=== PATIENT | male | born 1960 | race African-American/Black ===

== ENCOUNTER 2024-11-30 20:57 | Inpatient (IN) | payer BC, MEDICAID, MEDICARE ==
[~2024-11-30] VITALS: Ht 177.8 cm; Wt 95.3 kg
[2024-11-30 20:59] VITALS: O2SAT 97
[2024-11-30] MEDS: ACETAMINOPHEN 325MG TABLET PO ONE (22:05)
[2024-11-30 23:55] LABS: BASOPHILS % 0.4 % (0.0-2.0); EOSINOPHILS % 0.3 % (0.0-5.0); HEMATOCRIT. 40.5 % (42.0-52.0); HEMOGLOBIN. 13.5 g/dL (14.0-18.0); LYMPHOCYTES % 9.1 % (20.0-50.0); MEAN PLATELET VOLUME 8.1 fl (7.4-10.4); MONOCYTES % 6.1 % (2.0-8.0); NEUTROPHILS % 84.1 % (40.0-76.0); PLATELET 232 x1000/uL (130-400); RED BLOOD CELL COUNT 3.94 mill/uL (4.7-6.1); RED CELL DISTRIBUTION WIDTH 13.6 % (11.6-14.6)
[2024-12-01] VITALS: BP 137/90; PULSE 71; RESP 18; TEMP 36.6; O2SAT 99
[2024-12-01 00:05] LABS: CREATININE 0.9 mg/dL (0.6-1.3)
[2024-12-01 00:06] LABS: UREA NITROGEN BLOOD 7 mg/dL (9-23)
[2024-12-01 00:22] LABS: INR 1.0
[2024-12-01] MEDS ORDERED: GUAIFENESIN 200MG/10ML SUGAR FREE UDC PO PRN (01:15)
[2024-12-01] MEDS ORDERED: ONDANSETRON HCL 4MG/2ML INJ IV PRN ×2 (01:15→20:00)
[2024-12-01] MEDS ORDERED: CLONIDINE 0.1MG TABLET PO PRN (01:15)
[2024-12-01] MEDS ORDERED: DOCUSATE SODIUM 100MG CAPSULE PO PRN (01:15)
[2024-12-01] MEDS ORDERED: MAGNESIUM/ALUMINUM HYDROXIDE/SIMETHICONE 30ML UDC PO PRN (01:15)
[2024-12-01] MEDS ORDERED: IPRATROPIUM/ALBUTEROL 0.5-3(2.5)MG/3ML NEB HHN PRN (01:15)
[2024-12-01] MEDS: KETOROLAC 15MG/ML VIAL IV PRN (02:04)
[2024-12-01] MEDS ORDERED: NALOXONE HCL 0.4MG/ML VIAL IV PRN (02:15)
[2024-12-01 03:08] VITALS: BP 137/90; PULSE 71; RESP 18; TEMP 36.6404
[2024-12-01 04:00] VITALS: BP 111/81; PULSE 74; RESP 18; TEMP 36.7; O2SAT 99
[2024-12-01] MEDS: LACTATED RINGERS 1,000 ML IV SCH (05:37)
[2024-12-01] MEDS: MORPHINE SULFATE 4 MG/ML INJ (FOR IV/IM USE) IV PRN (06:10)
[2024-12-01 08:00] VITALS: BP 147/76; PULSE 64; RESP 18; TEMP 36.4; O2SAT 99
[2024-12-01] MEDS: ASPIRIN 81MG EC TABLET PO SCH (09:00)
[2024-12-01] MEDS: PANTOPRAZOLE SODIUM 40 MG/VIAL IV SCH (09:36)
[2024-12-01 10:11] LABS: CLARITY URINE CLEAR (CLEAR); COLOR URINE YELLOW (YELLOW); GLUCOSE URINE NEGATIVE (NEGATIVE); KETONES URINE TRACE (NEGATIVE); LEUKOCYTE ESTERASE URINE NEGATIVE (NEGATIVE); NITRITE URINE NEGATIVE (NEGATIVE); OCCULT BLOOD URINE TRACE (NEGATIVE); PH URINE 7.0 (4.5-8.0); PROTEIN URINE NEGATIVE (NEGATIVE); SPECIFIC GRAVITY URINE 1.016 (1.005-1.030); UROBILINOGEN URINE 1.0 E.U./dL (0.2-1.0)
[2024-12-01 10:25] LABS: BACTERIA URINE 1+; SQUAMOUS EPITHELIAL CELL URINE FEW /lpf (RARE/1+); YEAST URINE NONE SEEN
[2024-12-01 10:26] LABS: RBC URINE 0-2 /hpf (0-2)
[2024-12-01 10:30] LABS: *AMPHETAMINES SCREEN URINE NEGATIVE (NEGATIVE); *BARBITURATES SCREEN URINE NEGATIVE (NEGATIVE); *BENZODIAZEPINES SCREEN URINE NEGATIVE (NEGATIVE); *COCAINE SCREEN URINE NEGATIVE (NEGATIVE); CANNABINOID URINE SCREEN NEGATIVE (NEGATIVE); ECSTASY MDMA SCREEN URINE NEGATIVE (NEGATIVE); METHADONE URINE SCREEN NEGATIVE (NEGATIVE); OPIATES URINE SCREEN PRESUMPTIVE POSITIVE (NEGATIVE); PHENCYCLIDINE URINE SCREEN NEGATIVE (NEGATIVE)
[2024-12-01 12:00] VITALS: BP 140/76; PULSE 72; RESP 18; TEMP 36.5; O2SAT 99
[2024-12-01 12:11] LABS: FOLIC ACID (FOLATE) SERUM 12.89 ng/mL (>5.38); VITAMIN B12 SERUM 214 pg/mL (211-911)
[2024-12-01] MEDS: HYDROCODONE/ACETAMINOPHEN 5/325MG TABLET PO PRN (15:25)
[2024-12-01 16:00] VITALS: BP 136/83; PULSE 76; RESP 18; TEMP 36.6; O2SAT 98
[2024-12-01] MEDS: DEXT 5%/0.9% NACL 1,000 ML IV SCH (17:55)
[2024-12-01 18:38] LABS: CREATINE KINASE MB FRACTION 1.8 ng/mL (0.5-3.6)
[2024-12-01 18:39] LABS: LDL CHOLESTEROL 95 mg/dL (5-100); TRIGLYCERIDE 59 mg/dL (0-150); TROPONIN I HIGH SENSITIVITY < 4 ng/L (3.0-53)
[2024-12-01 18:43] LABS: T4 FREE 1.22 ng/dL (0.89-1.76)
[2024-12-01] MEDS ORDERED: VANCOMYCIN HCL 1GM VIAL ONE (18:52)
[2024-12-01] MEDS ORDERED: LIDOCAINE HCL/EPINEPHRINE 1%-EPI 1:100,000 20ML VIAL ONE (18:52)
[2024-12-01] MEDS ORDERED: ONDANSETRON HCL 4MG/2ML INJ ONE ×2 (18:59→19:47)
[2024-12-01] MEDS ORDERED: FENTANYL CITRATE/PF 50MCG/ML 2ML VIAL ONE ×2 (18:59→19:24)
[2024-12-01] MEDS ORDERED: DEXAMETHASONE 4MG/ML 1ML VIAL ONE (18:59)
[2024-12-01] MEDS ORDERED: ETOMIDATE 2MG/ML 10ML VIAL IV ONE (18:59)
[2024-12-01] MEDS ORDERED: MIDAZOLAM HCL 2 MG/2 ML VIAL ONE (18:59)
[2024-12-01] MEDS ORDERED: LIDOCAINE HCL 1% 10 MG/ML 10ML VIAL ONE (19:00)
[2024-12-01 19:15] LABS: HEPATITIS C AB NON REACTIVE (Neg) (Negative)
[2024-12-01] MEDS ORDERED: CEFAZOLIN SODIUM 2000MG/VIAL IJ SCH (22:00)
[2024-12-01] MEDS ORDERED: CEFAZOLIN 1000MG PREMIX 50ML IV SCH (22:00)
[2024-12-02] VITALS: BP 147/81; PULSE 76; RESP 19; TEMP 36.6; O2SAT 99
[2024-12-02] MEDS: HYDROMORPHONE HCL/PF 1MG/ML INJ IV PRN (00:36)
[2024-12-02] MEDS: MORPHINE SULFATE 10 MG/ML INJ (NOT FOR IM USE) IV PRN (00:47)
[2024-12-02 04:00] VITALS: BP 135/77; PULSE 70; RESP 17; TEMP 36.6; O2SAT 100
[2024-12-02 07:26] LABS: CREATINE KINASE MB FRACTION 1.1 ng/mL (0.5-3.6)
[2024-12-02 07:27] LABS: TROPONIN I HIGH SENSITIVITY < 4 ng/L (3.0-53)
[2024-12-02 07:30] LABS: CREATININE 1.0 mg/dL (0.6-1.3); TRIGLYCERIDE 71 mg/dL (0-150); UREA NITROGEN BLOOD 7 mg/dL (9-23)
[2024-12-02 07:31] LABS: LDL CHOLESTEROL 81 mg/dL (5-100)
[2024-12-02 07:32] LABS: PHOSPHORUS 3.0 mg/dL (2.5-4.9)
[2024-12-02 07:35] LABS: BASOPHILS % 0.5 % (0.0-2.0); EOSINOPHILS % 0.3 % (0.0-5.0); HEMATOCRIT. 36.2 % (42.0-52.0); HEMOGLOBIN. 12.1 g/dL (14.0-18.0); LYMPHOCYTES % 13.0 % (20.0-50.0); MEAN PLATELET VOLUME 8.8 fl (7.4-10.4); MONOCYTES % 11.1 % (2.0-8.0); NEUTROPHILS % 75.1 % (40.0-76.0); PLATELET 192 x1000/uL (130-400); RED BLOOD CELL COUNT 3.51 mill/uL (4.7-6.1); RED CELL DISTRIBUTION WIDTH 13.8 % (11.6-14.6)
[2024-12-02 08:00] VITALS: BP 146/83; PULSE 72; RESP 18; TEMP 37; O2SAT 99
[2024-12-02 12:00] VITALS: BP 138/80; PULSE 71; RESP 20; TEMP 36.6; O2SAT 99
[2024-12-02 16:00] VITALS: BP 136/74; PULSE 74; RESP 18; TEMP 37.2; O2SAT 100
[2024-12-02 20:00] VITALS: BP 122/83; PULSE 83; RESP 18; TEMP 36.8; O2SAT 97
[2024-12-02] MEDS: ENOXAPARIN 100MG/ML SYR SUBCUT SCH (23:57)
[2024-12-03] VITALS: BP 117/66; PULSE 74; RESP 20; TEMP 36.6; O2SAT 97
[2024-12-03 04:00] VITALS: BP 136/71; PULSE 78; RESP 18; TEMP 36.9; O2SAT 97
[2024-12-03 08:16] VITALS: BP 120/72; PULSE 66; RESP 19; TEMP 35.9; O2SAT 97
[2024-12-03 08:43] LABS: BASOPHILS % 0.6 % (0.0-2.0); EOSINOPHILS % 1.2 % (0.0-5.0); HEMATOCRIT. 30.4 % (42.0-52.0); HEMOGLOBIN. 10.2 g/dL (14.0-18.0); LYMPHOCYTES % 16.3 % (20.0-50.0); MEAN PLATELET VOLUME 8.6 fl (7.4-10.4); MONOCYTES % 10.8 % (2.0-8.0); NEUTROPHILS % 71.1 % (40.0-76.0); PLATELET 196 x1000/uL (130-400); RED BLOOD CELL COUNT 2.95 mill/uL (4.7-6.1); RED CELL DISTRIBUTION WIDTH 13.3 % (11.6-14.6)
[2024-12-03 08:48] LABS: INR 1.0
[2024-12-03 08:54] LABS: CREATININE 0.8 mg/dL (0.6-1.3); UREA NITROGEN BLOOD 6 mg/dL (9-23)
[2024-12-03 08:57] LABS: PHOSPHORUS 2.4 mg/dL (2.5-4.9)
[2024-12-03] MEDS: FAMOTIDINE 20MG/2ML VIAL IV SCH (09:05)
[2024-12-03 11:56] VITALS: BP 130/85; PULSE 72; RESP 19; TEMP 36.7; O2SAT 98
[2024-12-03] MEDS ORDERED: LIDOCAINE HCL 1% 10 MG/ML 10ML VIAL ONE ×2 (12:32→13:05)
[2024-12-03 16:00] VITALS: BP 133/69; PULSE 75; RESP 18; TEMP 37.1; O2SAT 98
[2024-12-03 20:00] VITALS: BP 141/78; PULSE 72; RESP 20; TEMP 36.9; O2SAT 95
[2024-12-04] VITALS: BP 118/59; PULSE 61; RESP 18; TEMP 36.9; O2SAT 96
[2024-12-04 04:00] VITALS: BP 120/66; PULSE 62; RESP 18; TEMP 36.7; O2SAT 97
[2024-12-04 08:00] VITALS: BP 130/68; PULSE 64; RESP 17; TEMP 36.6; O2SAT 97
[2024-12-04 08:35] LABS: BASOPHILS % 0.5 % (0.0-2.0); EOSINOPHILS % 2.2 % (0.0-5.0); HEMATOCRIT. 29.9 % (42.0-52.0); HEMOGLOBIN. 10.0 g/dL (14.0-18.0); LYMPHOCYTES % 15.5 % (20.0-50.0); MEAN PLATELET VOLUME 8.3 fl (7.4-10.4); MONOCYTES % 13.1 % (2.0-8.0); NEUTROPHILS % 68.7 % (40.0-76.0); PLATELET 205 x1000/uL (130-400); RED BLOOD CELL COUNT 2.92 mill/uL (4.7-6.1); RED CELL DISTRIBUTION WIDTH 13.1 % (11.6-14.6)
[2024-12-04 08:46] LABS: CREATININE 0.8 mg/dL (0.6-1.3); UREA NITROGEN BLOOD 7 mg/dL (9-23)
[2024-12-04 08:48] LABS: ASPARTATE AMINOTRANSFERASE 24 IU/L (<34); BILIRUBIN TOTAL 0.7 mg/dL (0.1-1.0); PROTEIN TOTAL 6.1 g/dL (6.0-8.3)
[2024-12-04] MEDS ORDERED: POLYMYXIN B SULFATE 500000 UNITS/VIAL ONE (09:24)
[2024-12-04] MEDS ORDERED: LIDOCAINE HCL/EPINEPHRINE 1%-EPI 1:100,000 20ML VIAL ONE ×2 (09:25→15:33)
[2024-12-04] MEDS ORDERED: VANCOMYCIN HCL 1GM VIAL ONE ×2 (09:25→15:10)
[2024-12-04] MEDS ORDERED: KETOROLAC 30MG/ML VIAL ONE (10:24)
[2024-12-04] MEDS ORDERED: LIDOCAINE HCL 1% 10 MG/ML 10ML VIAL ONE (10:24)
[2024-12-04] MEDS ORDERED: DEXAMETHASONE 4MG/ML 1ML VIAL ONE (10:24)
[2024-12-04] MEDS ORDERED: ONDANSETRON HCL 4MG/2ML INJ ONE (10:24)
[2024-12-04] MEDS ORDERED: PHENYLEPHRINE HCL 10MG/ML 1ML IV ONE (10:25)
[2024-12-04] MEDS ORDERED: PROPOFOL 200MG/20ML VIAL IV ONE (10:25)
[2024-12-04] MEDS ORDERED: FAMOTIDINE 20MG/2ML VIAL IV ONE (10:34)
[2024-12-04] MEDS ORDERED: ACETAMINOPHEN 1000MG/100ML 100 ML IV ONE (10:34)
[2024-12-04 12:00] VITALS: BP 148/79; PULSE 89; RESP 18; TEMP 36.7; O2SAT 96
[2024-12-04] MEDS ORDERED: ONDANSETRON HCL 4MG/2ML INJ IV PRN (12:15)
[2024-12-04] MEDS ORDERED: LABETALOL 5MG/ML 4ML INJ IV PRN (12:15)
[2024-12-04] MEDS ORDERED: HYDROMORPHONE HCL/PF 1MG/ML INJ IV PRN (12:15)
[2024-12-04] MEDS ORDERED: HYDRALAZINE 20MG/ML VIAL IV PRN ×2 (12:15)
[2024-12-04] MEDS ORDERED: MIDAZOLAM HCL 2 MG/2 ML VIAL ONE (12:44)
[2024-12-04] MEDS ORDERED: ROCURONIUM BROMIDE 10MG/ML VIAL 5ML IV ONE (12:44)
[2024-12-04] MEDS ORDERED: FENTANYL CITRATE/PF 50MCG/ML 2ML VIAL ONE (12:44)
[2024-12-04] MEDS ORDERED: CEFAZOLIN SODIUM 1000MG/VIAL ONE (13:29)
[2024-12-04] MEDS ORDERED: HYDROMORPHONE HCL/PF 1MG/ML INJ ONE ×3 (13:35→16:08)
[2024-12-04] MEDS ORDERED: CEFAZOLIN SODIUM 2000MG/VIAL IJ SCH (14:00)
[2024-12-04] MEDS ORDERED: NEOSTIGMINE METHYLSULFATE 1MG/ML 10 ML VIAL ONE (14:50)
[2024-12-04] MEDS ORDERED: GLYCOPYRROLATE 0.2 MG/ML 2ML VIAL ONE ×2 (14:50)
[2024-12-04 20:00] VITALS: BP 124/89; PULSE 82; RESP 20; TEMP 36.4; O2SAT 98
[2024-12-04] MEDS: ENOXAPARIN 30MG/0.3ML SYR SUBCUT SCH (21:30)
[2024-12-05] VITALS: BP 115/68; PULSE 73; RESP 20; TEMP 36.8; O2SAT 98
[2024-12-05 04:00] VITALS: BP 127/76; PULSE 93; RESP 20; TEMP 36.5; O2SAT 99
[2024-12-05 08:00] VITALS: BP 146/74; PULSE 72; RESP 20; TEMP 36.5; O2SAT 100
[2024-12-05 12:00] VITALS: BP 184/82; PULSE 75; RESP 20; TEMP 36.6; O2SAT 100
[2024-12-05 12:52] LABS: BASOPHILS % 0.4 % (0.0-2.0); EOSINOPHILS % 0.4 % (0.0-5.0); HEMATOCRIT. 29.2 % (42.0-52.0); HEMOGLOBIN. 9.7 g/dL (14.0-18.0); LYMPHOCYTES % 12.0 % (20.0-50.0); MONOCYTES % 14.3 % (2.0-8.0); NEUTROPHILS % 72.9 % (40.0-76.0); RED BLOOD CELL COUNT 2.82 mill/uL (4.7-6.1); RED CELL DISTRIBUTION WIDTH 12.6 % (11.6-14.6)
[2024-12-05 13:13] LABS: CREATININE 0.8 mg/dL (0.6-1.3); UREA NITROGEN BLOOD 6 mg/dL (9-23)
[2024-12-05 13:59] LABS: PLATELET 251 x1000/uL (130-400)
[2024-12-05 16:00] VITALS: BP 162/85; PULSE 83; RESP 20; TEMP 36.1; O2SAT 100
[2024-12-05 20:00] VITALS: BP 158/70; PULSE 88; RESP 16; TEMP 38.5; O2SAT 97
[2024-12-05] MEDS: ACETAMINOPHEN 325MG TABLET PO PRN (21:10)
[2024-12-05] MEDS ORDERED: KETOROLAC 15MG/ML VIAL IV PRN (23:00)
[2024-12-06] VITALS: BP 109/57; PULSE 71; RESP 19; TEMP 36.6; O2SAT 97
[2024-12-06 04:00] VITALS: BP 131/73; PULSE 72; RESP 16; TEMP 36.9; O2SAT 96
[2024-12-06 07:20] LABS: HEMATOCRIT. 27.2 % (42.0-52.0); HEMOGLOBIN. 9.2 g/dL (14.0-18.0); MEAN PLATELET VOLUME 8.0 fl (7.4-10.4); PLATELET 266 x1000/uL (130-400); RED BLOOD CELL COUNT 2.67 mill/uL (4.7-6.1); RED CELL DISTRIBUTION WIDTH 12.9 % (11.6-14.6)
[2024-12-06 07:34] LABS: CREATININE 0.8 mg/dL (0.6-1.3); UREA NITROGEN BLOOD 7 mg/dL (9-23)
[2024-12-06 08:00] VITALS: BP 121/63; RESP 19; TEMP 36.4; O2SAT 99
[2024-12-06] MEDS: TAMSULOSIN HCL 0.4MG SR CAPSULE PO SCH (10:05)
[2024-12-06 12:00] VITALS: BP 128/65; PULSE 75; RESP 20; TEMP 36.8; O2SAT 100
[2024-12-06 16:00] VITALS: BP 123/69; PULSE 72; RESP 18; TEMP 36.6; O2SAT 99
[2024-12-06 16:11] LABS: CLARITY URINE CLEAR (CLEAR); COLOR URINE DARK YELLOW (YELLOW); GLUCOSE URINE NEGATIVE (NEGATIVE); KETONES URINE NEGATIVE (NEGATIVE); LEUKOCYTE ESTERASE URINE NEGATIVE (NEGATIVE); NITRITE URINE NEGATIVE (NEGATIVE); OCCULT BLOOD URINE NEGATIVE (NEGATIVE); PH URINE 7.0 (4.5-8.0); PROTEIN URINE TRACE (NEGATIVE); SPECIFIC GRAVITY URINE 1.014 (1.005-1.030); UROBILINOGEN URINE 1.0 E.U./dL (0.2-1.0)
[2024-12-06 16:22] LABS: EOSINOPHILS % MANUAL 1.0 % (0.0-5.0); LYMPHOCYTES % MANUAL 14.0 % (20.0-50.0); METAMYELOCYTES % 2.0 % (0-0); MONOCYTES % MANUAL 15.0 % (2.0-8.0); MYELOCYTES % 2.0 % (0-0); NEUTROPHILS % MANUAL 66.0 % (45.0-75.0)
[2024-12-06 16:23] LABS: PLATELET ESTIMATE NORMAL
[2024-12-06 17:08] LABS: BACTERIA URINE 1+; RBC URINE NONE SEEN /hpf (0-2); SQUAMOUS EPITHELIAL CELL URINE RARE /lpf (RARE/1+); WBC URINE 0-2 /hpf (0-2)
[2024-12-06 20:00] VITALS: BP 121/55; PULSE 83; RESP 16; TEMP 36.3; O2SAT 96
[2024-12-07] VITALS: BP 120/59; PULSE 80; RESP 18; TEMP 37.2; O2SAT 98
[2024-12-07] MEDS: HYDROCODONE/ACETAMINOPHEN 5/325MG TABLET PO PRN (03:46)
[2024-12-07 04:00] VITALS: BP 115/55; PULSE 62; RESP 16; TEMP 38.1; O2SAT 99
[2024-12-07 08:00] VITALS: BP 115/70; PULSE 80; RESP 18; TEMP 37.8; O2SAT 98
[2024-12-07 12:00] VITALS: BP 110/51; PULSE 78; RESP 19; TEMP 37.8; O2SAT 98
[2024-12-07 16:00] VITALS: BP 119/62; PULSE 81; RESP 18; TEMP 37.7; O2SAT 99
[2024-12-07 20:00] VITALS: BP 111/67; PULSE 84; RESP 19; TEMP 38.9; O2SAT 97
[2024-12-07] MEDS: ACETAMINOPHEN 325MG TABLET PO PRN (23:28)
[2024-12-08] VITALS: BP 102/61; PULSE 79; RESP 19; TEMP 37.2; O2SAT 98
[2024-12-08 04:00] VITALS: BP 105/58; PULSE 71; RESP 18; TEMP 36.8; O2SAT 98
[2024-12-08 08:00] VITALS: BP 110/55; PULSE 66; RESP 18; TEMP 36.7; O2SAT 98
[2024-12-08 12:00] VITALS: BP 119/63; PULSE 71; RESP 18; TEMP 36.8; O2SAT 100
[2024-12-08 16:00] VITALS: BP 129/62; PULSE 75; RESP 18; TEMP 36.7; O2SAT 98
[2024-12-08 20:00] VITALS: BP 117/58; PULSE 82; RESP 17; TEMP 36.2; O2SAT 96
[2024-12-08] MEDS: REGADENOSON 0.4 MG/5 ML IV ONE (20:08)
[2024-12-09] VITALS: BP 114/63; PULSE 78; RESP 19; TEMP 36.7; O2SAT 98
[2024-12-09 04:00] VITALS: BP 123/68; PULSE 82; RESP 18; TEMP 36.8; O2SAT 98
[2024-12-09 07:55] LABS: BASOPHILS % 0.7 % (0.0-2.0); EOSINOPHILS % 1.6 % (0.0-5.0); HEMATOCRIT. 26.2 % (42.0-52.0); HEMOGLOBIN. 8.8 g/dL (14.0-18.0); LYMPHOCYTES % 13.3 % (20.0-50.0); MEAN PLATELET VOLUME 7.2 fl (7.4-10.4); MONOCYTES % 13.7 % (2.0-8.0); NEUTROPHILS % 70.7 % (40.0-76.0); PLATELET 440 x1000/uL (130-400); RED BLOOD CELL COUNT 2.59 mill/uL (4.7-6.1); RED CELL DISTRIBUTION WIDTH 13.0 % (11.6-14.6)
[2024-12-09 08:00] VITALS: BP 115/57; PULSE 69; RESP 16; TEMP 36.6; O2SAT 98
[2024-12-09 08:20] LABS: CREATININE 0.8 mg/dL (0.6-1.3)
[2024-12-09 08:21] LABS: UREA NITROGEN BLOOD 9 mg/dL (9-23)
[2024-12-09 12:00] VITALS: BP 118/70; PULSE 67; RESP 17; TEMP 36.8; O2SAT 100
[2024-12-09 16:00] VITALS: BP 124/65; PULSE 67; RESP 19; TEMP 37.3; O2SAT 97
[2024-12-09 20:00] VITALS: BP 111/60; PULSE 75; RESP 20; TEMP 36.7; O2SAT 98
[2024-12-10] VITALS (7 sets, daily range): BP systolic 108–131; BP diastolic 58–68; PULSE 64–72; RESP 16–20; TEMP 36.2–37.5; O2SAT 96–98
[2024-12-10] MEDS ORDERED: NALOXONE HCL 0.4MG/ML VIAL IV PRN (10:15)
[2024-12-10] MEDS ORDERED: TAMS-54 PO (15:31)
[2024-12-10] MEDS ORDERED: ASPI-1406 PO (15:31)
[2024-12-11] VITALS: BP 115/58; PULSE 72; RESP 18; TEMP 37.5; O2SAT 96
[2024-12-11 04:00] VITALS: BP 116/67; PULSE 75; RESP 18; TEMP 36.7; O2SAT 99
[2024-12-11 08:00] VITALS: BP 115/66; PULSE 69; RESP 16; TEMP 36.6; O2SAT 96
[2024-12-11 12:00] VITALS: BP 119/67; PULSE 68; RESP 16; TEMP 36.7; O2SAT 96
[2024-12-11 14:52] VITALS: BP 115/66; PULSE 69; TEMP 97.8
== END 2024-12-11 16:26 | disposition home health service (06) | DRG 494 ==
LOC: ER 20:57 → 8EST 23:39 → EDBEDREQ 23:42 → EDBEDREQTM 23:42 → ENRESERV 23:51 → 7WST 12-02 09:56 → 7EST 12-10 10:04
PROVIDERS: ADMIT Internal Medicine; ATTEND Internal Medicine
PROC: 0QSH35Z Reposition Left Tibia with External Fixation Device, Percutaneous Approach (ICD-10-PCS; principal; 2024-12-01)
PROC: 02HV33Z Insertion of Infusion Device into Superior Vena Cava, Percutaneous Approach (ICD-10-PCS; 2024-12-03)
PROC: B548ZZA Ultrasonography of Superior Vena Cava, Guidance (ICD-10-PCS; 2024-12-03)
PROC: 0QSH04Z Reposition Left Tibia with Internal Fixation Device, Open Approach (ICD-10-PCS; 2024-12-04)
DX: S82.142A Displaced bicondylar fracture of left tibia, initial encounter for closed fracture (principal); S42.032A Displaced fracture of lateral end of left clavicle, initial encounter for closed fracture; I10 Essential (primary) hypertension; N40.0 Benign prostatic hyperplasia without lower urinary tract symptoms; E78.5 Hyperlipidemia, unspecified; I25.10 Atherosclerotic heart disease of native coronary artery without angina pectoris; G20.A1 Parkinson's disease without dyskinesia, without mention of fluctuations; H40.9 Unspecified glaucoma; F17.210 Nicotine dependence, cigarettes, uncomplicated; Z95.1 Presence of aortocoronary bypass graft; Z79.899 Other long term (current) drug therapy; Z86.73 Personal history of transient ischemic attack (TIA), and cerebral infarction without residual deficits; W10.9XXA Fall (on) (from) unspecified stairs and steps, initial encounter; Y93.89 Activity, other specified; Y92.89 Other specified places as the place of occurrence of the external cause; Y99.8 Other external cause status
CPT/HCPCS: 36415; 71045; 72170; 73030; 73200; 73560; 73562; 73590; 73700; 76000; 77001; 78452; 80048; 80053; 80061; 80305; 81003; 82550; 82553; 82607; 82746; 83036; 83735; 84100; 84439; 84443; 84484; 85025; 85379; 86705; 86850; 86900; 87340; 93005; 93017; 93306; 93970; 97162; 97166; 97530; 97535; 99285; A4565; A4606; C1725; J0690; J1100; J1171; J1308; J1650; J1885; J2003; J2004; J2250; J2270; J2371; J2405; J2470; J2704; J2710; J2785; J3010; J3373; J3490; J7030; J7042; C1713; J0131